=== PATIENT | female | born 1960 | race Caucasian/White ===

== ENCOUNTER 2022-10-03 14:53 | Outpatient (REF) | payer OTHER, SELFPAY ==
[2022-10-03 14:59] LABS: HCT 39.7 % (36.0-46.0); HGB 13.3 g/dL (11.2-15.7); MCH 31.3 pg (27.0-33.0); MCHC 33.5 % (32.0-36.0); MCV 93 fL (80-95); MPV 12.4 fL (8.0-11.0); Platelet Count 211 10^3/uL (130-400); RBC 4.25 10^6/uL (3.93-5.22); RDW 12.7 % (11.7-14.6); RDW-SD 43.8 fL; WBC 4.83 10^3/uL (4.4-10.8)
== END 2022-10-03 14:54 | disposition home or self-care (01) ==
LOC: NCHCN 14:53
PROVIDERS: Visit Provider Family Medicine
DX: D64.9 Anemia, unspecified (principal)
CPT/HCPCS: 85027

== ENCOUNTER 2023-10-08 15:15 | Outpatient (REF) | payer OTHER, SELFPAY ==
[2023-10-08 18:41] LABS: Anion Gap 11.6 mmol/L (3-11); BUN 18 mg/dL (7-18); CO2 25.4 mmol/L (21.0-32.0); CREATININE 0.8 mg/dL (0.55-1.02); Calcium 9.8 mg/dL (8.5-10.1); Chloride 103 mmol/L (98-107); Estimated GFR 83.78 (mL/min/1.73m2); Glucose 91 mg/dL (74-106); Potassium 4.1 mmol/L (3.5-5.1); Sodium 140 mmol/L (136-145)
[2023-10-08 22:58] LABS: HIV-1/2 Ag & Ab Screen Negative (Negative)
[2023-10-08 23:00] LABS: Hepatitis C Ab w Rflx HCV PCR Negative (Negative)
== END 2023-10-08 15:16 | disposition home or self-care (01) ==
LOC: NCHCN 15:15
PROVIDERS: PCP Family Medicine; Visit Provider Family Medicine
DX: Z00.00 Encounter for general adult medical examination without abnormal findings (principal); Z11.4 Encounter for screening for human immunodeficiency virus [HIV]; Z11.59 Encounter for screening for other viral diseases
CPT/HCPCS: 80048; 86803; 87389

== ENCOUNTER 2024-10-12 08:21 | Outpatient (REF) | payer OTHER, SELFPAY ==
--- NOTE | 2024-10-12 10:37 | PAPFT_PTH ---
PATIENT: Destinee Hirsch LOC: [facility] U#:[id number] AGE/SX: 64/F ROOM: RE10/12/[address]: Fina Nelson : 1960 BED: DIS: 10/12/2024 SPEC #: [id number] RECD: 10/12/24 18:18 STATUS: RAMÓN REQ #: [id number] DEJAH: 10/12/24 10:[address]: Fina Nelson DEPT: [facility] Cytology RECD BY: Elvira Delgado Tissues: 1 - CX/ENDOCX FOR PAP SMEARS Procedures: PAP THIN PREP/[facility] Screening HPV DNA PROBE Comments: [id number] (HPV 16 & 18/45)
== END 2024-10-12 08:22 | disposition home or self-care (01) ==
LOC: NCHCN 08:21
PROVIDERS: PCP Family Medicine; Visit Provider Family Medicine
DX: Z11.51 Encounter for screening for human papillomavirus (HPV) (principal); Z01.419 Encounter for gynecological examination (general) (routine) without abnormal findings
CPT/HCPCS: 88142; 87624